=== PATIENT | female | born 1995 | race Two or more races ===

== ENCOUNTER 2017-06-26 11:06 | Outpatient (CLI) | payer OTHER ==
--- NOTE | 2017-06-26 14:29 | Ultrasound Report ---
PELVIC ULTRASOUND: 06/26/2017 CLINICAL INDICATION: Irregular menses. TECHNIQUE: Transabdominal pelvic ultrasound performed for global evaluation. Transvaginal pelvic ultr asound performed for detailed evaluation. Real-time scanning performed and static images obtained. FINDINGS: The uterus is anteverted, measuring 7.2 x 3.8 x 2.8 cm. The endometrial echo complex measu res 8 mm. No focal myometrial lesion is seen. The right ovary measures 4.0 x 2.7 x 2.3 cm, and contai ns follicles. The left ovary measures 4.1 x 2.7 x 2.6 cm, and contains follicles. Trace free fluid is present. IMPRESSION: NORMAL PELVIC ULTRASOUND. JOB #: [id number] EXT JOB #:[id number]
== END 2017-06-26 11:07 | disposition home or self-care (01) ==
LOC: DI 11:06
PROVIDERS: ATTEND Registered Nurse
DX: N92.5 Other specified irregular menstruation (principal)
CPT/HCPCS: 76830; 76856